=== PATIENT | female | born 1960 | race Caucasian/White ===

== ENCOUNTER 2020-09-17 22:15 | Inpatient (IN) | payer OTHER, SELFPAY ==
[2020-09-17 22:20] VITALS: TEMP 36.9; BMI 21.6
--- NOTE | 2020-09-17 22:39 | DI.RAD.S_ITS ---
PROCEDURE: XR ABDOMEN MIN 2V INDICATIONS: abdominal pain TECHNIQUE: 2 views of the abdomen were acquired. COMPARISON: [facility], CT, CT ABDOMEN PELVIS W CON, 09/17/2020, 23:32. FINDINGS: Surgical changes and devices: None. Bowel: No pneumoperitoneum. Paucity of small bowel gas limits evaluation for small bowel obstruction. There is diffuse colonic gas. Soft tissues: No masses; visualized solid organ contours appear normal in size. No suspicious abdominal calcifications. Lung bases are clear. Bones: No suspicious bony abnormalities. IMPRESSION: Paucity of small bowel gas limits evaluation for small bowel obstruction. If clinically indicated consider CT abdomen pelvis for further evaluation. This report is concordant with the overnight preliminary interpretation. Dictated by: Pepito Gold M.D. on 09/18/2020 at 7:30 Approved by: Pepito Gold M.D. on 09/18/2020 at 7:32
[2020-09-17] MEDS: SODIUM CHLORIDE 0.9% 1,000 ML 1000 ML IV (22:46)
[2020-09-17] MEDS: PANTOPRAZOLE 40 MG VIAL IV (22:47)
[2020-09-17 22:50] LABS: Add Manual Diff / Slide Review NO; Alanine Aminotransferase 12 IU/L (<35); Albumin 4.3 g/dL (3.5-5.0); Albumin Globulin Ratio 1.7 (1.0-2.8); Alkaline Phosphatase 65 U/L (38-126); Aspartate Aminotransferase 23 IU/L (14-36); BUN Creatinine Ratio 9.4 (6-22); Basophils Absolute Auto 100 /uL (0-100); Basophils Percent Auto 0.8 % (0-2); Bilirubin Total 0.5 mg/dL (0.2-1.3); Blood Urea Nitrogen 5 mg/dL (7-17); Calcium 9.3 mg/dL (8.4-10.2); Carbon Dioxide 26 mmol/L (22-32); Chloride 96 mmol/L (98-107); Eosinophils Absolute Auto 0 /uL (0-450); Eosinophils Percent Auto 0.1 % (2-4); Estimated Glomerular Filt Rate > 60.0 mL/min (>60); Globulin 2.6 g/dL (1.7-4.1); Glucose 136 mg/dL (70-100); HEMOLYSIS < 15 (0-50); Hematocrit 37.1 % (36-46); Hemoglobin 12.4 g/dL (12.0-16.0); Lipase 29 U/L (23-300); Lymphocytes Absolute Auto 400 /uL (1100-4500); Lymphocytes Percent Auto 2.8 % (25-40); Mean Corpuscular HGB Conc 33.3 % (30-36); Mean Corpuscular Hemoglobin 30.9 PG (26-34); Mean Corpuscular Volume 92.7 fL (80-100); Monocytes Absolute Auto 1300 /uL (0-900); Monocytes Percent Auto 8.4 % (3-14); Neutrophils Absolute Auto 13900 /uL (1500-7000); Neutrophils Percent Auto 87.9 % (50-75); Platelet Count 249 X10^3/uL (150-400); Potassium 3.8 mmol/L (3.4-5.1); Sodium 131 mmol/L (137-145); Total Protein 6.9 g/dL (6.3-8.2); White Blood Cell Count 15.9 X10^3/uL (4.5-11.0)
--- NOTE | 2020-09-17 23:18 | ED.ABDPAIN ---
HPI - Abdominal Pain General Chief Complaint: Abdominal Pain Stated Complaint: Abdominal Pain Time Seen by Provider: 09/17/20 22:17 Source: EMS Mode of arrival: EMS Limitations: no limitations History of Present Illness HPI narrative: 60-year-old female smoker with occasional history of vague abdominal pain presents by EMS in the chief complaint of severe central abdominal pain with nausea over the course of the day. She states that she had subtle symptoms very early in the morning and over the course of the day became quite severe. She states it was 10/10 at its worse and constant in nature. She denies any obvious provocation, palliation or radiation. She does think that she might have eaten some bad food last evening. She denies any recent travel, use of antibiotics or exposure to other ill persons. She denies any history of the same. She has never had any abdominal surgeries but states she has been told she might have a hernia. Her symptoms had improved a bit prior to her arrival. MD complaint: abdominal pain Onset (ago): hour(s) Pain Consistency: constant Location: diffuse Severity: severe Severity scale (1-10): 10 Quality: cramping and stabbing Radiation: none Relieving factors: nothing Exacerbating factors: nothing Context: possible food poisoning Associated symptoms: nausea Related Data Allergies Allergy/AdvReac Type Severity Reaction Status Date / Time INGREDIENT: NKDA - NO KNOWN Allergy Unknown Uncoded 09/17/20 22:24 DRUG ALLERGIES lobster AdvReac Unknown Vomiting Uncoded 09/17/20 23:43 Review of Systems Constitutional Constitutional: Denies chills, Denies fatigue, Denies fever(s), Denies frequent falls, Denies lethargy and Denies weakness Eyes Eyes: Denies change in vision, Denies eye discharge, Denies irritation and Denies loss of vision ENT Ears, Nose, Mouth, and Throat: Denies change in voice, Denies dizziness, Denies neck pain, Denies sore throat and Denies throat swelling Cardiovascular Cardiovascular: Denies chest pain, Denies irregular heart rhythm, Denies lightheadedness, Denies palpitations, Denies dyspnea, Denies dyspnea on exertion and Denies orthopnea Respiratory Respiratory: Denies cough, Denies dyspnea, Denies dyspnea on exertion and Denies wheezing Gastrointestinal Gastrointestinal: Reports abdominal pain, Denies change in bowel habits, Denies diarrhea, Reports nausea and Denies vomiting Musculoskeletal Musculoskeletal: Denies neck pain and Denies numbness Integumentary/Breasts Skin/Breast: Denies pruritus, Denies erythema, Denies rash and Denies wounds Neurologic Neurologic: Denies behavioral changes, Denies confusion, Denies dizziness, Denies frequent falls, Denies loss of vision, Denies numbness and Denies weakness Psychiatric Psychiatric: Denies anxiety, Denies behavioral changes, Denies confusion, Denies depression, Denies homicidal ideation and Denies suicidal ideation Endocrine Endocrine: Denies fatigue, Denies flushing and Denies palpitations Hematologic/Lymphatic Hematologic/Lymphatic: Denies easy bruising Allergic/Immunologic Allergic/Immunologic: Denies urticaria, Denies throat swelling and Denies wheezing Patient History Social History Smoking Status: Current some day smoker Smoking Status: Current some day smoker alcohol intake frequency: a few times a week Substance Use Type: does not use Exam Narrative Exam Narrative: GENERAL: [60] year old patient appears stated age. Well-nourished, well-developed patient, in mild distress. Anxious, tearful HEAD: Atraumatic. Normocephalic. EYES: Pupils equal round and reactive. Extraocular motions intact. No scleral icterus. No injection or drainage. ENT: Nose without bleeding, purulent drainage. Throat without erythema, tonsillar hypertrophy or exudate. Airway patent. NECK: Trachea midline. Non tender CARDIOVASCULAR: Regular rate and rhythm without murmurs, gallops, or rubs. RESPIRATORY: Clear to auscultation. Breath sounds equal bilaterally. No wheezes, rales, or rhonchi. GASTROINTESTINAL: Abdomen soft, periumbilical tenderness, no rebound, nondistended. Bowel sounds present in all 4 quadrants EXTREMITIES: No edema or joint tenderness. BACK: Nontender without deformity or crepitance. No flank tenderness. NEURO: AOx3. SKIN: No rash or erythema of visible areas Initial Vital Signs Initial Vital Signs: Vital Signs Temperature 98.5 F 09/17/20 22:20 Course Course Course Narrative: patient states most of her pain is improved now and only hurts in RLQ now. She has localized peritonitis with positive heel tap. Orders Ordered: ED Orders 09/17/20 22:30 Complete Blood Count AUTO DIFF Stat Comprehensive Metabolic Panel Stat Lipase Stat 09/17/20 22:39 XR abdomen min 2V Stat 09/17/20 23:19 CT abdomen pelvis w con Stat 09/18/20 00:50 COVID19 - ADMIT (GEOPHYSICAL ENGINEER swab/PCR) Stat Ceftriaxone Sodium/Dextrose (Rocephin) 1 gm in 50 mls @ 100 mls/hr IV Q12H LENNY Last Admin: 09/18/20 01:09 Dose: 100 mls/hr Documented by: Metronidazole (Flagyl) 500 mg in 100 mls @ 100 mls/hr IV Q6H LENNY Lactated Ringer's (Lactated Ringers) 1,000 mls @ 125 mls/hr IV CONT LENNY Discontinued Medications Diphenhydramine HCl (Diphenhydramine 50 Mg/Ml Vial) 25 mg IV NOW ONE Stop: 09/17/20 23:33 Last Admin: 09/17/20 23:37 Dose: 25 mg Documented by: LESLIE Sodium Chloride (Normal Saline 0.9%) 1,000 mls @ 1,000 mls/hr IV BOLUS ONE Stop: 09/17/20 23:38 Last Infusion: 09/18/20 00:33 Dose: 0 mls/hr Documented by: Admin: 09/17/20 22:46 Dose: 1,000 mls/hr Documented by: LESLIE Cefotetan Disodium 2 gm/ (Sodium Chloride) 100 mls @ 200 mls/hr IV NOW ONE Stop: 09/18/20 00:51 Methylprednisolone (Methylprednisolone 125 Mg/2 Ml Vial) 125 mg IV NOW ONE Stop: 09/17/20 23:33 Last Admin: 09/17/20 23:37 Dose: 125 mg Documented by: LESLIE Pantoprazole Sodium (Pantoprazole 40 Mg Vial) 40 mg IV NOW ONE Stop: 09/17/20 22:40 Last Admin: 09/17/20 22:47 Dose: 40 mg Documented by: LESLIE Vital Signs Vital signs: Vital Signs - 8 hr 09/17/20 22:20 Temperature 98.5 F MDM - Abdominal Pain Lab Data Result diagrams: 09/17/20 22:30 09/17/20 22:30 Labs: Lab Results 09/17/20 09/17/20 Range/Units 22:30 22:30 WBC 15.9 H (4.5-11.0) X10^3/uL RBC 4.00 (4.0-5.2) X10^6/uL Hgb 12.4 (12.0-16.0) g/dL Hct 37.1 (36-46) % MCV 92.7 (80-100) fL MCH 30.9 (26-34) PG MCHC 33.3 (30-36) % RDW 13.0 (11.6-14.8) % Plt Count 249 (150-400) X10^3/uL Neut % (Auto) 87.9 H (50-75) % Lymph % (Auto) 2.8 L (25-40) % [place] % (Auto) 8.4 (3-14) % Eos % (Auto) 0.1 L (2-4) % Baso % (Auto) 0.8 (0-2) % Neut # (Auto) 78483 H (4041-5694) /uL Lymph # (Auto) 400 L (3809-9700) /uL [place] # (Auto) 1300 H (0-900) /uL Eos # (Auto) 0 (0-450) /uL Baso # (Auto) 100 (0-100) /uL Sodium 131 L (137-145) mmol/L Potassium 3.8 (3.4-5.1) mmol/L Chloride 96 L (98-107) mmol/L Carbon Dioxide 26 (22-32) mmol/L BUN 5 L (7-17) mg/dL Creatinine 0.53 (0.52-1.04) mg/dL Estimated GFR > 60.0 (>60) mL/min BUN/Creatinine Ratio 9.4 (6-22) Glucose 136 H (70-100) mg/dL Calcium 9.3 (8.4-10.2) mg/dL Total Bilirubin 0.5 (0.2-1.3) mg/dL AST 23 (14-36) IU/L ALT 12 (<35) IU/L Alkaline Phosphatase 65 (38-126) U/L Total Protein 6.9 (6.3-8.2) g/dL Albumin 4.3 (3.5-5.0) g/dL Globulin 2.6 (1.7-4.1) g/dL Albumin/Globulin Ratio 1.7 (1.0-2.8) Lipase 29 (23-300) U/L Point of care testing: Urine Dip Bedside Urine Glucose Negative Bedside Urine Bilirubin - Negative Bedside Urine Ketone - Negative Urine Specific [place] 1.020 Bedside Urine Occult Blood - Negative Bedside Urine pH 6 Bedside Urine Protein - Negative Bedside Urine Urobilinogen - Negative Bedside Urine Nitrite - Negative Bedside Urine Leukocytes - Negative Esterase Imaging Data Abdominal x-ray: Radiologist's Impression: 1. Small and large bowel ileus 2. No obstruction or free air CT scan - abdomen/pelvis: Radiologist's Impression: Positive for acute appendicitis without complications. Multiple large appendicoliths noted. Fluid distension of appendix up to 1 cm with surrounding fluid and fat stranding with adjacent reactive lymph nodes. No evidence for perforation, dimple appendiceal abscess or bowel obstruction Discharge Plan Departure Patient Disposition: Admitted As Inpatient Clinical Impression: Acute appendicitis Qualifiers: Acute appendicitis type: with localized peritonitis Appendicitis gangrene presence: without gangrene Appendicitis perforation presence: without perforation Appendicitis abscess presence: without abscess Qualified Code(s): K35.30 - Acute appendicitis with localized peritonitis, without perforation or gangrene
--- NOTE | 2020-09-17 23:19 | DI.CT.S_ITS ---
PROCEDURE: CT ABDOMEN PELVIS W CON INDICATIONS: severe abdominal pain, leukocytosis TECHNIQUE: After the administration of intravenous contrast, 5 mm thick sections acquired from the diaphragm to the symphysis. 5 mm coronal and sagittal reformats were acquired. For radiation dose reduction, the following was used: automated exposure control, adjustment of mA and/or kV according to patient size. COMPARISON: None. FINDINGS: Image quality: Excellent. ABDOMEN: Lung bases: Lung bases are clear. Heart size is normal. Solid organs: Liver is normal in size and enhancement. Gallbladder is unremarkable. Biliary system is non dilated. Pancreas enhances normally. Spleen is normal in size and enhancement. No adrenal nodules. Kidneys demonstrate normal size and enhancement, without hydronephrosis. Peritoneum and bowel: The appendix is dilated measuring 1.1 cm, (/). There is surrounding periappendiceal inflammatory change in trace free fluid. No free air is seen. High-density inspissation is within the appendiceal lumen. Small lymph nodes in the right lower quadrant. A few mildly prominent loops of small bowel in the right lower quadrant. No transition point. A few colonic diverticuli. Nodes and vessels: No retroperitoneal or mesenteric adenopathy by size criteria. Aorta and inferior vena cava are normal in size. Miscellaneous: No ventral hernias. PELVIS: Genitourinary: Bladder is distended. Unremarkable uterus. Miscellaneous: No inguinal hernias or adenopathy. Bones: No suspicious bony lesions. No vertebral body compression fractures. Moderate DDD most pronounced at L4-L5 and L5-S1. IMPRESSION: Acute appendicitis. No free air to suggest rupture. This report is concordant with the overnight preliminary interpretation. Dictated by: Pepito Gold M.D. on 09/18/2020 at 9:34 Approved by: Pepito Gold M.D. on 09/18/2020 at 9:42
[2020-09-17] MEDS: diphenhydrAMINE 50 MG/ML VIAL 25 MG IV (23:37)
[2020-09-17] MEDS: methylPREDNISolone 125 MG/2 ML VIAL IV (23:37)
--- NOTE | 2020-09-17 23:44 | PC.NURSE ---
Pt states she has an allergy to Lobster, causes sever vomiting. MD made aware and pt pre medicated prior to CT scan.
[2020-09-18] VITALS (15 sets, daily range): BP systolic 84–134; BP diastolic 47–80; PULSE 51–109; RESP 14–34; TEMP 35.8–37.2; O2SAT 95–100; BMI 21.7
--- NOTE | 2020-09-18 | PATH_ITS ---
[facility] Accession Number: [id number] . 01 Material submitted: . appendix - APPENDIX . 02 Diagnosis: Appendix, Appendectomy: Acute appendicitis and serositis. Features of perforation are present. V 09/23/2020 0945 Local . 02 Electronically signed: . Argelia Perkins MD, Pathologist NPI- [id number] . 01 Gross description: . The specimen is received in formalin, labeled appendix and consists of a 5.5 cm in length by 1.5 cm in diameter vermiform appendix with attached quintana-yellow lobulated mesoappendix measuring 4.0 x 1.5 x 1.0 cm. The serosa is quintana-pink with adherent purulent exudate. Sectioning reveals a quintana mucosa and a lumen measuring 0.6 cm in diameter. There is a perforation site within the tip. German Tutor sections are submitted to include the margin (blue), central cross-sections and bisected tip in cassettes A1-A2. (EA:[id number]) /MRV 09/22/2020 1133 Local . 02 Pathologist provided ICD-10: K35.20 . 02 CPT . 414334 Performed at: 01 [facility] [address], [place], [place] [id number] MD Humza Grossman MD Phone: [phone] Performed at: 02 [facility] [address] [place], [place] [id number] MD Pat Delgadillo MD Phone: [phone]
[2020-09-18] MEDS: LACTATED RINGERS 1,000 ML 125 ML IV ×3 (01:00→15:10)
[2020-09-18] MEDS: CEFTRIAXONE 1 GM/50 ML FROZ.PIGGY IV ×2 (01:09→13:30)
[2020-09-18] MEDS: metroNIDAZOLE 500 MG/100 ML PIGGYBACK 100 MG IV ×5 (01:38→23:58)
[2020-09-18 02:10] LABS: COVID19 - ADMIT (NP swab/PCR) Negative (Negative)
[2020-09-18] MEDS: HYDROMORPHONE 0.5 MG INJ IV ×4 (04:09→21:12)
--- NOTE | 2020-09-18 07:00 | PC.NURSE ---
Admission note: Pt arrived via stretcher, transferred self to inpatient bed with no difficulties. AxOx3, can make needs known. No hx of falls. C/o abdominal pain, managed on IV pain medications. Fall risk and call light education given, patient acknowledged teaching, calls appropriately.
--- NOTE | 2020-09-18 08:13 | P.HP_ITS ---
History of Present Illness History of Present Illness Date Patient Seen: 09/18/20 Time Patient Seen: 08:02 Chief complaint: Abdominal Pain Narrative: Chief complaint: Abdominal pain. History patient is a woman who thought she might have eaten something tainted she developed abdominal pain 1:00 a.m. yesterday morning the pain seemed to progress in subtle on the right lower quadrant she came into the ER last night and was admitted. She has no vomiting. She is feeling better with pain medicine. No prior symptoms like this. The pain increases with movement. Patient History Medical History (Updated 09/18/20 @ 08:16 by Germain Dorman MD) History of paroxysmal supraventricular tachycardia Surgical History (Updated 09/18/20 @ 08:16 by Germain Dorman MD) History of uterine suspension procedure Family & Social History Social History: household members spouse,children Prior Living Arrangements House Safety & Behavioral: Feels Safe in Current Yes Environment Been Physically Hurt or No Threatened By a Person Suicidal Ideation Description None Suicide Plan Description No Plan Tobacco & Substance use: Smoking Status Current some day smoker alcohol intake frequency a few times a week Substance Use Type does not use Meds Home Medications and Allergies Home Medications Medication Instructions Recorded Confirmed Type alprazolam 0.25 mg PO TID 09/18/20 09/18/20 History Allergies Allergy/AdvReac Type Severity Reaction Status Date / Time INGREDIENT: NKDA - NO KNOWN Allergy Unknown Uncoded 09/17/20 22:24 DRUG ALLERGIES lobster AdvReac Unknown Vomiting Uncoded 09/17/20 23:43 Review of Systems Review of Systems Narrative: Patient denies visual difficulties pain arise. No cough cold or asthma. She gets SVT which is controlled with a problems a [place] as it is anxiety related. Patient has no black or bloody bowel movements. No seizures or blackouts. She is not diabetic and does not have any problems with the thyroid. Exam Vital Signs (past 8 hours): - 09/18/20 01:12 09/18/20 01:30 09/18/20 02:29 Temperature 98.9 F Pulse Rate 102 H 101 H 109 H Respiratory Rate 18 34 H 19 Blood Pressure 119/76 112/80 128/80 Pulse Oximetry 96 96 97 Oxygen Delivery Method Room Air Narrative Exam Narrative: Cooperative in no apparent distress. Eyes are nonicteric. Pupils equal round reactive to light. Oral mucosa is dry no open lesions. No splits in lips. Neck is supple there are no nodes in the neck or supraclavicular areas. Trachea is midline mobile thyroid is not enlarged lungs are clear to auscultation. No rales rhonchi equal percussion. Heart regular rate and rhythm without murmur gallop. No bruit in the neck. Abdomen is sc aphoid soft with localized tenderness the right lower quadrant. No guarding at this time. No ventral hernias appreciated. Patient is alert and oriented x3. Speech rate and content are appropriate. Affect is little flat. Patient skin is pale. No open lesions appreciated. 2+ texture and turgor. Objective Imaging CT scan - abdomen: My impression: Inflammation around the appendix. The appendix is a bit thickened and appears to have fecaliths. Labs Result Diagrams: 09/17/20 22:30 09/17/20 22:30 Labs: Laboratory Results - last 24 hr 09/17/20 09/17/20 09/18/20 22:30 22:30 00:50 WBC 15.9 H RBC 4.00 Hgb 12.4 Hct 37.1 MCV 92.7 MCH 30.9 MCHC 33.3 RDW 13.0 Plt Count 249 Neut % (Auto) 87.9 H Lymph % (Auto) 2.8 L [place] % (Auto) 8.4 Eos % (Auto) 0.1 L Baso % (Auto) 0.8 Neut # (Auto) 49290 H Lymph # (Auto) 400 L [place] # (Auto) 1300 H Eos # (Auto) 0 Baso # (Auto) 100 Sodium 131 L Potassium 3.8 Chloride 96 L Carbon Dioxide 26 BUN 5 L Creatinine 0.53 Estimated GFR > 60.0 BUN/Creatinine Ratio 9.4 Glucose 136 H Calcium 9.3 Total Bilirubin 0.5 AST 23 ALT 12 Alkaline Phosphatase 65 Total Protein 6.9 Albumin 4.3 Globulin 2.6 Albumin/Globulin Ratio 1.7 Lipase 29 SARS-CoV-2 (PCR) Negative Assessment & Plan Assessment & Plan narrative: Acute appendicitis with fecalith. Do not feel she is the best candidate for non operative therapy. I have discussed the removal of her gallbladder laparoscopically with her. Risks of bleeding infection he rnia discussed. She appears to understand wishes to proceed. NPO. Quality VTE Deep Vein Thrombosis/Pulmonary Embolism Present on Admission: No MIPS - Admit Advanced Care Plan / Current Medications Measures: #47 ? Advanced Care Plan Clinician documentation instruction: document at admission. [] I confirmed that the patient's Advance Care Plan is present, code status is documented, or surrogate decision maker is listed in the patient?s medical record. [SATISFIES MIPS PERFORMANCE] If Yes, Stop Here [] The patient?s Advance Care plan is not present because: (select) [MIPS PERFORMANCE EXCEPTION/EXCLUSION] [] I confirmed today that the patient does not wish or was not able to name a surrogate decision maker or provide an Advance Care Plan. [] Hospice care is currently being provided or has been provided this calendar year [] I did NOT confirm today the presence of an Advance Care Plan or surrogate decision maker documented within the patient's medical record. [DOES NOT SATISFY MIPS PERFORMANCE] #130 - Documentation of Current Medications in the Medical Record Clinician documentation instruction: use macro the first time you see a patient. [] I have utilized all available immediate resources to obtain, update, or review the patient?s current medications. [SATISFIES MIPS PERFORMANCE] If Yes, Stop Here [] The patient is not eligible for medication reconciliation; the patient is in an emergent medical situation where delaying treatment would jeopardize the patient?s health. [MIPS PERFORMANCE EXCEPTION/EXCLUSION] [] I did NOT confirm, update or review the patient's current list of medications today. [DOES NOT SATISFY MIPS PERFORMANCE] MIPS - CL Central Venous Catheter Placement Measure: #76 ? Prevention of Central Venous Catheter (CVC) ? Related Bloodstream Infection Clinician documentation instruction: use macro every time you place a central line. [] All elements of Maximal Sterile Barrier Technique, including hand hygiene, skin prep, and sterile ultrasound technique (if used) were followed. [SATISFIES MIPS PERFORMANCE] If Yes, Stop Here [] If ?No?, the medical reason all elements were NOT used for medical reason [] (ex. emergent condition). [] Maximal Sterile Barrier Technique was not followed, no reason provided [DOES NOT SATISFY MIPS PERFORMANCE] MIPS - DC Heart Failure Measures: #5 - Heart Failure (HF): Angiotensin-Converting Enzyme (NAVEED) Inhibitor or Angiotensin Receptor Velia (ARB) Therapy for Left Ventricular Systolic Dysfunction (LVSD) and #8 - Heart Failure (HF): Beta-Velia Therapy for Left Ventricular Systolic Dysfunction (LVSD) Clinician documentation instruction: use macro at every CHF discharge. [] The patient has current or prior documentation of left ventricular ejection fraction (LVEF) less than 40%, or moderate or severely depressed left ventricular systolic function. Answer both: [SATISFIES MIPS PERFORMANCE] [] The patient was prescribed or already taking an Angiotensin-Converting Enzyme (NAVEED) Inhibitor, or Angiotensin Receptor Velia (ARB). [] The patient was prescribed or already taking a beta-velia. If Yes to Both, Stop Here [] Patient not prescribed/taking: [MIPS PERFORMANCE EXCEPTION/EXCLUSION] [] NAVEED or ARB for medical/patient/system reason(s) including [] (ex. allergy, intolerance, contraindication) [] Beta-velia for medical/patient/system reason(s) including [] (ex. allergy, intolerance, contraindication) [] Patient not prescribed/taking: [DOES NOT SATISFY MIPS PERFORMANCE] [] NAVEED or ARB, no reason given [] Beta-velia, no reason given
--- NOTE | 2020-09-18 08:49 | PM.PREOP ---
Pre-operative Note COVID-19 COVID-19 status: Negative Result date/Date tested (Pos, Neg/Pending): 09/17/20 Interval Note History & Physical reviewed/Exam performed by Physician: Yes Changes to H&P: No
[2020-09-18] MEDS: CEFOTETAN 2 GM in SODIUM CHLORIDE 0.9% 100 ML 200 ML IV (09:35)
--- NOTE | 2020-09-18 09:55 | SUR.OPER ---
Supine on padded OR bed, head on pillow, right arm secured on padded arm boards at <90 degrees abduction, left arm padded and tucked at side, legs uncrossed, safety belt at thigh, tape over blanket over lower legs.
--- NOTE | 2020-09-18 10:09 | PC.NURSE ---
Addendum entered by Haley Chua R.N. 09/18/20 11:50: Patients lap sites are all cdi and she is tolerating ice water. Addendum entered by Haley Chua R.N. 09/18/20 11:44: Patient back from surgery, report taken. Just up to room getting settled. Original Note: Assess- Patient feeling better this morning....denied pain after given iv dilaudid at 0630 this morning. Patient down to surgery around 0930. She was having tenderness to her r.lower quadrant.
[2020-09-18] MEDS: BUPIVACAINE 0.5% (PF) VIAL 30 ML INJ (10:17)
--- NOTE | 2020-09-18 11:39 | P.OP_ITS ---
Operative Date/Time/Diagnoses Date of procedure: 09/18/20 Time of procedure: 11:12 Pre-op diagnosis: Acute appendicitis Post-op diagnosis: other (Perforated appendicitis) Procedure & Clinicians Procedure: Laparoscopic appendectomy Same procedure as scheduled: Yes Indications: Patient with history physical exam and a CT consistent with append icitis Surgeon: Germain Dorman Click Yes if Unassisted: Yes Anesthesia Type: General Operative Notes Findings: Tip of the appendix was necrotic. Closure Type: primary Specimen(s): other (Appendix) Prosthetic devices, grafts, tissues, transplants, or devices: None Estimated Blood Loss (mL): 5 Procedure in detail: The patient is placed supine on the operating room table underwent general endotracheal anesthesia. She was prepped and draped in the usual fashion. Local anesthetic was infiltrated curvilinear incision made in the infraumbilical fold. This carried down under direct vision in the peritoneal cavity. Stay sutures of 0 Vicryl were placed in the fascia. A 12 mm port was inserted. The abdomen is insufflated and 2 additional ports were placed 1 in the suprapubic area and 1 left lower quadrant. Internal visualization was performed in placing those ports. The surface of the distal small bowel was covered and petechiae which was a bit odd. The appendix however was obviously inflamed and curled up on the surface of the cecum. The tip was black. I dissected the mesoappendix and divided it using cautery and conrado. The base was cleared and an 0 PDS loop was placed at the base of the appendix. It was cinched down. The appendix had a clamp placed across it was divided and the mucosa cauterized. The appendix was placed without spillage into a bag which was removed without difficulty through the umbilical port. The port was reinserted and the abdomen irrigated and suctioned free of fluid. There was no ongoing bleeding. Great care was taken to evacuate fluid from the pelvis and also adjacent to the liver. The area operated upon on looked as it should. There was no evidence of any injury to the colon. The ports were all removed. Stay sutures at the umbilicus were tied and a 2 0 PDS was placed between the other 2 stitches. The wounds were irrigated and suctioned free of fluid. 4-0 Vicryl subcuticular stitches were used to close the skin along with Mastisol and Steri-Strips. Dressings were applied the patient was awakened extubated taken recovery room good condition. There were no apparent complications. Complications: none Post-operative Condition: stable Disposition: PACU
--- NOTE | 2020-09-18 11:47 | SUR.PHASEI ---
Stable PACU stay, no nausea, no pain, tolerated ice chips, chin lift for airway support needed until 1107 for airway patency. Report called to CRISTHIAN De Leon. Pt transported up to room 216 on room air. Left in stable condition with CRISTHIAN Candelaria, bed down, locked, SCD's on, call light in reach voiced understanding of use.
[2020-09-18] MEDS: OXYCODONE IR 5 MG TABLET PO (14:29)
[2020-09-18] MEDS: ALPRAZolam 0.25 MG TABLET PO ×2 (14:29→21:12)
--- NOTE | 2020-09-18 14:49 | CM.DANOTE ---
DCP Brief Assessment Note Patient is a 60 year old female who was admitted on 09/18/20 today for Abd Pain. Pt has [facility] ([facility]) for insurance and her PCP is not listed. Per Surgeon, pt with acute appendicitis with fecalith. Pt has confirmed she is willing for surgery and is NPO for Lap Appe. Per Surgeon, during surgery today determined pt had perforated appendix and more complicated than anticipated. Pt recently back up the floor and SW did not meet bedside as pt is finally resting after surgery and pt not stable for d/c yet today. Pt lives at home in [place] with spouse and kids and is independent at baseline. Plan: SW to follow for bedside assessment tomorrow towards determining any d/c planning needs and if pt safe for d/c home with family assist when stable. RADHA Arroyo
[2020-09-18] MEDS: GABAPENTIN 300 MG CAPSULE PO (21:12)
[2020-09-18] MEDS: ENOXAPARIN 40 MG/0.4 ML SYRINGE SUBCUT (21:12)
[2020-09-19] VITALS (7 sets, daily range): BP systolic 107–120; BP diastolic 62–80; PULSE 70–81; RESP 16–18; TEMP 36.2–37.3; O2SAT 96–100
[2020-09-19] MEDS: CEFTRIAXONE 1 GM/50 ML FROZ.PIGGY IV ×2 (01:16→12:30)
[2020-09-19] MEDS: HYDROMORPHONE 0.5 MG INJ IV ×2 (01:37→17:42)
[2020-09-19] MEDS: LACTATED RINGERS 1,000 ML 125 ML IV (02:13)
[2020-09-19] MEDS: metroNIDAZOLE 500 MG/100 ML PIGGYBACK 100 MG IV ×4 (05:53→23:46)
[2020-09-19 06:26] LABS: Add Manual Diff / Slide Review NO; Basophils Absolute Auto 100 /uL (0-100); Basophils Percent Auto 0.4 % (0-2); Eosinophils Absolute Auto 0 /uL (0-450); Hematocrit 30.2 % (36-46); Hemoglobin 10.3 g/dL (12.0-16.0); Lymphocytes Absolute Auto 600 /uL (1100-4500); Lymphocytes Percent Auto 4.5 % (25-40); Mean Corpuscular HGB Conc 34.1 % (30-36); Mean Corpuscular Hemoglobin 31.6 PG (26-34); Mean Corpuscular Volume 92.6 fL (80-100); Monocytes Absolute Auto 1000 /uL (0-900); Monocytes Percent Auto 7.9 % (3-14); Neutrophils Absolute Auto 10700 /uL (1500-7000); Neutrophils Percent Auto 87.2 % (50-75); Platelet Count 179 X10^3/uL (150-400); Red Blood Cell Count 3.26 X10^6/uL (4.0-5.2); Red Cell Distribution Width 13.4 % (11.6-14.8); White Blood Cell Count 12.3 X10^3/uL (4.5-11.0)
[2020-09-19] MEDS: ALPRAZolam 0.25 MG TABLET PO ×3 (08:56→22:35)
[2020-09-19] MEDS: ENOXAPARIN 40 MG/0.4 ML SYRINGE SUBCUT (08:56)
[2020-09-19] MEDS: GABAPENTIN 300 MG CAPSULE PO ×2 (08:56→20:01)
[2020-09-19] MEDS: ACETAMINOPHEN 325 MG TABLET 650 MG PO ×3 (09:04→20:01)
--- NOTE | 2020-09-19 10:53 | PM.PNPO.1 ---
Subjective Subjective Date Patient Seen: 09/19/20 Time Patient Seen: 10:53 Interval history: Postoperative day 1 status post laparoscopic appendectomy for perforated appendicitis. Pain is well controlled. No nausea vomiting had episode of diarrhea overnight. Minimal appetite taking liquids. Ambulatory around the unit. Exam Vital Signs (past 8 hours): - 09/19/20 05:56 09/19/20 07:20 Temperature 97.2 F L 97.3 F L Pulse Rate 78 78 Respiratory Rate 16 18 Blood Pressure 107/62 120/77 Pulse Oximetry 96 100 Oxygen Delivery Method Room Air Oxygen Flow Rate 0 Narrative Exam Narrative: General adult female alert oriented no acute distress Abdomen soft minimally tender right lower quadrant incisions with Band-Aids in place small amount of shadowing at the umbilical laparoscopic site Objective Labs Result Diagrams: 09/19/20 05:54 09/17/20 22:30 Labs: Laboratory Results - last 24 hr 09/19/20 05:54 WBC 12.3 H RBC 3.26 L Hgb 10.3 L Hct 30.2 L MCV 92.6 MCH 31.6 MCHC 34.1 RDW 13.4 Plt Count 179 Neut % (Auto) 87.2 H Lymph % (Auto) 4.5 L [place] % (Auto) 7.9 Eos % (Auto) 0.0 L Baso % (Auto) 0.4 Neut # (Auto) 23330 H Lymph # (Auto) 600 L [place] # (Auto) 1000 H Eos # (Auto) 0 Baso # (Auto) 100 PFSH Medical History (Updated 09/18/20 @ 08:16 by Germain Dorman MD) History of paroxysmal supraventricular tachycardia Surgical History (Updated 09/18/20 @ 08:16 by Germain Dorman MD) History of uterine suspension procedure Social History household members: spouse and children Smoking Status: Current some day smoker Assessment & Plan Post-op Postoperative Procedures: Procedures Operation Date: 09/18/20 09:00 Actual Procedures Side Surgeon p Laparoscopic Appendectomy Germain Dorman MD Postoperative plan narrative: 60-year-old woman postoperative day 1 status post laparoscopic appendectomy for acute perforated appendicitis. She is overall doing well and recovering appropriately. Plan -Advance diet as tolerated -Saline lock -continue IV antibiotics until resolution of leukocytosis -SCDs and pLovenox for VTE prophylaxis -Anticipate DC home tomorrow on PO antibiotics Quality VTE Deep Vein Thrombosis/Pulmonary Embolism Present on Admission: No MIPS - Admit Advanced Care Plan / Current Medications Measures: #47 ? Advanced Care Plan Clinician documentation instruction: document at admission. [] I confirmed that the patient's Advance Care Plan is present, code status is documented, or surrogate decision maker is listed in the patient?s medical record. [SATISFIES MIPS PERFORMANCE] If Yes, Stop Here [] The patient?s Advance Care plan is not present because: (select) [MIPS PERFORMANCE EXCEPTION/EXCLUSION] [] I confirmed today that the patient does not wish or was not able to name a surrogate decision maker or provide an Advance Care Plan. [] Hospice care is currently being provided or has been provided this calendar year [] I did NOT confirm today the presence of an Advance Care Plan or surrogate decision maker documented within the patient's medical record. [DOES NOT SATISFY MIPS PERFORMANCE] #130 - Documentation of Current Medications in the Medical Record Clinician documentation instruction: use macro the first time you see a patient. [] I have utilized all available immediate resources to obtain, update, or review the patient?s current medications. [SATISFIES MIPS PERFORMANCE] If Yes, Stop Here [] The patient is not eligible for medication reconciliation; the patient is in an emergent medical situation where delaying treatment would jeopardize the patient?s health. [MIPS PERFORMANCE EXCEPTION/EXCLUSION] [] I did NOT confirm, update or review the patient's current list of medications today. [DOES NOT SATISFY MIPS PERFORMANCE] MIPS - CL Central Venous Catheter Placement Measure: #76 ? Prevention of Central Venous Catheter (CVC) ? Related Bloodstream Infection Clinician documentation instruction: use macro every time you place a central line. [] All elements of Maximal Sterile Barrier Technique, including hand hygiene, skin prep, and sterile ultrasound technique (if used) were followed. [SATISFIES MIPS PERFORMANCE] If Yes, Stop Here [] If ?No?, the medical reason all elements were NOT used for medical reason [] (ex. emergent condition). [] Maximal Sterile Barrier Technique was not followed, no reason provided [DOES NOT SATISFY MIPS PERFORMANCE] MIPS - DC Heart Failure Measures: #5 - Heart Failure (HF): Angiotensin-Converting Enzyme (NAVEED) Inhibitor or Angiotensin Receptor Gurvinder (ARB) Therapy for Left Ventricular Systolic Dysfunction (LVSD) and #8 - Heart Failure (HF): Beta-Gurvinder Therapy for Left Ventricular Systolic Dysfunction (LVSD) Clinician documentation instruction: use macro at every CHF discharge. [] The patient has current or prior documentation of left ventricular ejection fraction (LVEF) less than 40%, or moderate or severely depressed left ventricular systolic function. Answer both: [SATISFIES MIPS PERFORMANCE] [] The patient was prescribed or already taking an Angiotensin-Converting Enzyme (NAVEED) Inhibitor, or Angiotensin Receptor Gurvinder (ARB). [] The patient was prescribed or already taking a beta-gurvinder. If Yes to Both, Stop Here [] Patient not prescribed/taking: [MIPS PERFORMANCE EXCEPTION/EXCLUSION] [] NAVEED or ARB for medical/patient/system reason(s) including [] (ex. allergy, intolerance, contraindication) [] Beta-gurvinder for medical/patient/system reason(s) including [] (ex. allergy, intolerance, contraindication) [] Patient not prescribed/taking: [DOES NOT SATISFY MIPS PERFORMANCE] [] NAVEED or ARB, no reason given [] Beta-gurvinder, no reason given
--- NOTE | 2020-09-19 13:33 | CM.DPC ---
DCP Cont: Per MD, pt tolerated procedure well and pain seems to be controlled and pt has been ambulating in the room and on the unit but still on liquids and getting IV-Abx. Plan of advancing diet today with potential of d/c home on orals tomorrow if stable. Per RN, pt has been independent in her room and progressing well and no concerns at this time. Plan: SW to follow closely for likely plan of d/c home with spouse and kids tomorrow if medically stable and tolerates advancing diet. SW to follow for any further needs. RADHA Arroyo
--- NOTE | 2020-09-19 17:57 | PC.NURSE ---
Addendum entered by Carlin Bartlett R.N. 09/19/20 22:25: second call placed to Lindsay regarding increased bleeding from embillical site incision. Orders for a abd. woodson given. Aware that this is the 3rd compression dressing changed and patient had saturated through all dressings, clothing and bedding. Original Note: Call placed to dr. Montoya regarding continous bleeding at embilical site incision, blood has a steady trickle, dressing has been changed mult times since 1530 shift start. Reported patient received lovenox inj. at 2100 on 09/18 and another at 0900 on 09/19 and has had a drop in H&H since. Asked about pressure dressing and poss d/c of lovenox ing. However, no action to be taken at this time per dr. Montoya.
[2020-09-19] MEDS: OXYCODONE IR 5 MG TABLET PO (23:54)
[2020-09-20] MEDS: CEFTRIAXONE 1 GM/50 ML FROZ.PIGGY IV ×2 (00:50→12:52)
[2020-09-20] MEDS: LACTATED RINGERS 1,000 ML 125 ML IV (00:53)
[2020-09-20] MEDS: ACETAMINOPHEN 325 MG TABLET 650 MG PO ×3 (03:15→16:31)
[2020-09-20 03:46] VITALS: BP 146/96; PULSE 98; RESP 16; TEMP 36.6; O2SAT 95
[2020-09-20] MEDS: OXYCODONE IR 5 MG TABLET PO ×3 (03:57→11:23)
[2020-09-20] MEDS: HYDROMORPHONE 0.5 MG INJ IV (04:48)
[2020-09-20] MEDS: metroNIDAZOLE 500 MG/100 ML PIGGYBACK 100 MG IV ×2 (05:44→11:22)
[2020-09-20 05:58] LABS: Add Manual Diff / Slide Review NO; Basophils Absolute Auto 0 /uL (0-100); Basophils Percent Auto 0.1 % (0-2); Eosinophils Absolute Auto 100 /uL (0-450); Eosinophils Percent Auto 0.8 % (2-4); Hematocrit 31.1 % (36-46); Hemoglobin 10.5 g/dL (12.0-16.0); Lymphocytes Absolute Auto 800 /uL (1100-4500); Lymphocytes Percent Auto 7.7 % (25-40); Mean Corpuscular HGB Conc 33.8 % (30-36); Mean Corpuscular Hemoglobin 31.6 PG (26-34); Mean Corpuscular Volume 93.4 fL (80-100); Monocytes Absolute Auto 800 /uL (0-900); Monocytes Percent Auto 8.3 % (3-14); Neutrophils Absolute Auto 8400 /uL (1500-7000); Neutrophils Percent Auto 83.1 % (50-75); Platelet Count 210 X10^3/uL (150-400); Red Blood Cell Count 3.33 X10^6/uL (4.0-5.2); Red Cell Distribution Width 13.4 % (11.6-14.8); White Blood Cell Count 10.2 X10^3/uL (4.5-11.0)
[2020-09-20 07:26] VITALS: BP 114/74; PULSE 85; RESP 16; TEMP 36.1; O2SAT 96
[2020-09-20] MEDS: ALPRAZolam 0.25 MG TABLET PO ×2 (08:18→14:28)
[2020-09-20] MEDS: GABAPENTIN 300 MG CAPSULE PO (08:18)
--- NOTE | 2020-09-20 14:24 | P.DS_ITS ---
History of Present Illness History of Present Illness Date Patient Seen: 09/20/20 Time Patient Seen: 14:24 Chief complaint: Abdominal Pain Narrative: 60-year-old woman admitted to the hospital 09/18 for management of acute appendicitis. She developed abdominal pain CT abdomen and pelvis demonstrated acute appendicitis without abscess. Discharge Providers Provider Date of admission: 09/18/20 01:22 Discharge Date: 09/20/20 Discharge provider: Harjit Montoya MD Summary Hospital Course Discharge Diagnosis: Acute perforated appendicitis Hospital Course: Patient underwent a laparoscopic appendectomy 09/18/2020. She had perforated appendicitis. Postoperatively was maintained on IV antibiotics until her leukocytosis for resolved. On the date of discharge 09/20 she is doing well. She has minimal abdominal pain no nausea vomiting tolerating a diet. She will be discharged home on a 1 week course of Augmentin. Exam Vital Signs (past 8 hours): - 09/20/20 07:26 Temperature 96.9 F L Pulse Rate 85 Respiratory Rate 16 Blood Pressure 114/74 Pulse Oximetry 96 Oxygen Delivery Method Room Air Oxygen Flow Rate 0 Narrative Exam Narrative: General adult female alert oriented no acute distress Abdomen soft nontender. No active hemorrhage from the umbilical site. Surgical dressing is removed with old hematoma. Reinforced with Steri-Strips and a Tegaderm. Objective Labs Result Diagrams: 09/20/20 05:31 09/17/20 22:30 Labs: Laboratory Results - last 24 hr 09/20/20 05:31 WBC 10.2 RBC 3.33 L Hgb 10.5 L Hct 31.1 L MCV 93.4 MCH 31.6 MCHC 33.8 RDW 13.4 Plt Count 210 Neut % (Auto) 83.1 H Lymph % (Auto) 7.7 L [place] % (Auto) 8.3 Eos % (Auto) 0.8 L Baso % (Auto) 0.1 Neut # (Auto) 8400 H Lymph # (Auto) 800 L [place] # (Auto) 800 Eos # (Auto) 100 Baso # (Auto) 0 PFSH Medical History (Updated 09/18/20 @ 08:16 by Germain Dorman MD) History of paroxysmal supraventricular tachycardia Surgical History (Updated 09/18/20 @ 08:16 by Germain Dorman MD) History of uterine suspension procedure Social History household members: spouse and children Smoking Status: Current some day smoker Discharge Plan Discharge Plan Patient Disposition: Home Discharge orders & Medications Prescriptions: New amoxicillin-pot clavulanate [Augmentin] 875-125 mg tablet 1 tab PO BID Qty: 14 RF: 0 oxycodone 5 mg tablet 5 mg PO Q6H PRN (Reason: pain) Qty: 30 RF: 0 alprazolam [Xanax] 0.5 mg tablet 0.5 mg PO TID Qty: 10 RF: 0 Continued alprazolam 0.25 mg tablet 0.25 mg PO TID RF: 0 Follow up/Referrals: Germain Dorman MD [Physician] - 2 Weeks Diet/Activity/Treatments Diet: Regular Activity: No lifting >20 lbs x 4 weeks. Walking only for exercise for [address] while taking narcotics. Skin/Wound/Dressing Care Report to your healthcare provider any signs of infection, such as:: chills, fever, increased pain, unusual drainage and unusual redness Visit Report/Discharge Packet Instructions: DI for an Appendectomy, DI for Laparoscopy Quality VTE Deep Vein Thrombosis/Pulmonary Embolism Present on Admission: No MIPS - Admit Advanced Care Plan / Current Medications Measures: #47 ? Advanced Care Plan Clinician documentation instruction: document at admission. [] I confirmed that the patient's Advance Care Plan is present, code status is documented, or surrogate decision maker is listed in the patient?s medical record. [SATISFIES MIPS PERFORMANCE] If Yes, Stop Here [] The patient?s Advance Care plan is not present because: (select) [MIPS PERFORMANCE EXCEPTION/EXCLUSION] [] I confirmed today that the patient does not wish or was not able to name a surrogate decision maker or provide an Advance Care Plan. [] Hospice care is currently being provided or has been provided this calendar year [] I did NOT confirm today the presence of an Advance Care Plan or surrogate decision maker documented within the patient's medical record. [DOES NOT SATISFY MIPS PERFORMANCE] #130 - Documentation of Current Medications in the Medical Record Clinician documentation instruction: use macro the first time you see a patient. [] I have utilized all available immediate resources to obtain, update, or review the patient?s current medications. [SATISFIES MIPS PERFORMANCE] If Yes, Stop Here [] The patient is not eligible for medication reconciliation; the patient is in an emergent medical situation where delaying treatment would jeopardize the patient?s health. [MIPS PERFORMANCE EXCEPTION/EXCLUSION] [] I did NOT confirm, update or review the patient's current list of medications today. [DOES NOT SATISFY MIPS PERFORMANCE] MIPS - CL Central Venous Catheter Placement Measure: #76 ? Prevention of Central Venous Catheter (CVC) ? Related Bloodstream Infection Clinician documentation instruction: use macro every time you place a central line. [] All elements of Maximal Sterile Barrier Technique, including hand hygiene, skin prep, and sterile ultrasound technique (if used) were followed. [SATISFIES MIPS PERFORMANCE] If Yes, Stop Here [] If ?No?, the medical reason all elements were NOT used for medical reason [] (ex. emergent condition). [] Maximal Sterile Barrier Technique was not followed, no reason provided [DOES NOT SATISFY MIPS PERFORMANCE] MIPS - DC Heart Failure Measures: #5 - Heart Failure (HF): Angiotensin-Converting Enzyme (NAVEED) Inhibitor or Angiotensin Receptor Gurvinder (ARB) Therapy for Left Ventricular Systolic Dysfunction (LVSD) and #8 - Heart Failure (HF): Beta-Gurvinder Therapy for Left Ventricular Systolic Dysfunction (LVSD) Clinician documentation instruction: use macro at every CHF discharge. [] The patient has current or prior documentation of left ventricular ejection fraction (LVEF) less than 40%, or moderate or severely depressed left ventricular systolic function. Answer both: [SATISFIES MIPS PERFORMANCE] [] The patient was prescribed or already taking an Angiotensin-Converting Enzyme (NAVEED) Inhibitor, or Angiotensin Receptor Gurvinder (ARB). [] The patient was prescribed or already taking a beta-gurvinder. If Yes to Both, Stop Here [] Patient not prescribed/taking: [MIPS PERFORMANCE EXCEPTION/EXCLUSION] [] NAVEED or ARB for medical/patient/system reason(s) including [] (ex. allergy, intolerance, contraindication) [] Beta-gurvinder for medical/patient/system reason(s) including [] (ex. aller gy, intolerance, contraindication) [] Patient not prescribed/taking: [DOES NOT SATISFY MIPS PERFORMANCE] [] NAVEED or ARB, no reason given [] Beta-gurvinder, no reason given
== END 2020-09-20 18:30 | disposition home or self-care (01) | DRG 340 ==
LOC: ED 09-18 01:21 → AC 09-18 01:23
PROVIDERS: Surgery; Admitting Provider Specialist; Emergency Provider Emergency Medicine; Referring Provider Emergency Medicine; Visit Provider Specialist
PROC: 0DTJ4ZZ Resection of Appendix, Percutaneous Endoscopic Approach (ICD-10-PCS; CPT 44970; principal; 2020-09-18 09:00)
DX: K35.32 Acute appendicitis with perforation, localized peritonitis, and gangrene, without abscess (principal); F17.210 Nicotine dependence, cigarettes, uncomplicated; Z20.822 Contact with and (suspected) exposure to COVID-19
CPT/HCPCS: 36415; 44970; 74019; 74177; 80053; 81003; 83690; 85025; 87635; 99222; 99284; C9113; J1170; J1200; J1650; J2250; J2704; J2930; J3010; Q9967